=== PATIENT | female | born 1945 | race Caucasian/White ===

== ENCOUNTER 2016-08-11 21:16 | Emergency (ER) | payer MEDICARE, BC ==
[2016-08-11] MEDS ORDERED: BYSTOLIC5 M1 PO (22:22)
[2016-08-11] MEDS ORDERED: LIPITOR40 M1 PO (22:23)
[2016-08-11] MEDS ORDERED: NORVASC5 M2 PO (22:23)
[2016-08-11] MEDS ORDERED: SYNTHROID100 MC1 PO (22:23)
[2016-08-11] MEDS ORDERED: LISINOPRIL40 M1 PO (22:23)
[2016-08-11] MEDS ORDERED: ASPIRIN81 M1 PO (22:24)
[2016-08-11 22:50] LABS: URINE BILIRUBIN NEGATIVE (NEG); URINE BLOOD SMALL (NEG); URINE GLUCOSE (UA) NEGATIVE (NEG); URINE KETONE NEGATIVE (NEG); URINE LEUKOCYTE ESTERASE POSITIVE (NEG); URINE NITRITE NEGATIVE (NEG); URINE PROTEIN SMALL (NEG)
[2016-08-11 22:55] LABS: URINE APPEARANCE HAZY; URINE COLOR YELLOW
[2016-08-11 23:07] LABS: URINE BACTERIA 1+; URINE EPITHELIAL CELLS 0-1 /[HPF] (0-10)
[2016-08-11 23:08] LABS: BASO % 0.1 % (0-2); EOSINOPHIL ABSOLUTE COUNT 0.2 tho/cmm (0.0-0.7); IMMATURE GRANULOCYTES ABSOLUTE 0.02 tho/cmm (0-0.03); IMMATURE GRANULOCYTES PERCENT 0.2 % (0-0.3); LYMPH % 18.7 % (20-45); LYMPH ABSOLUTE COUNT 1.7 tho/cmm (0.8-4.5); MCH (MEAN CORPUSCULAR HGB) 30.4 pg (28.0-32.0); MCHC MEAN CORPUSCULAR HGB CONC 34.9 % (32.0-36.0); MCV (MEAN CELL VOLUME) 87.2 fl (82.0-96.0); MONO % 7.3 % (0-12); MONOCYTE ABSOLUTE COUNT 0.6 tho/cmm (0.0-1.2); NEUTROPHIL ABSOLUTE COUNT 6.3 tho/cmm (1.6-8.0); NEUTROPHIL-AUTOMATED 6.3 tho/cmm (1.6-8.0); NEUTROPHILS % 71.7 % (40-80); PLATELET COUNT 229 tho/cmm (150-450); RED BLOOD COUNT 4.93 mil/cmm (4.00-5.20); RED CELL DISTRIBUTION WIDTH 12.5 % (12.4-16.4); WHITE BLOOD COUNT 8.8 tho/cmm (4.0-10.0)
[2016-08-11 23:32] LABS: ALB/GLOB RATIO 1.1 (0.8-2.0); ALBUMIN 3.7 g/dl (3.5-5.0); ALKALINE PHOSPHATASE 140 U/L (33-138); ALT/SGPT 160 U/L (12-78); ANION GAP 14 mmol/L (0-20); AST/SGOT 311 U/L (10-40); BILIRUBIN,TOTAL 0.9 mg/dl (0-1.5); BLOOD UREA NITROGEN 22 mg/dl (6-24); CALCIUM 9.1 mg/dl (8.5-10.5); CARBON DIOXIDE-VENOUS 24 mmol/L (22-32); CHLORIDE 108 mmol/l (96-110); CREATININE 1.33 mg/dl (0.50-1.10); GLUCOSE 145 mg/dL (70-110); LIPASE 193 U/L (73-393); POTASSIUM 3.4 mmol/L (3.7-5.1); SODIUM 143 mmol/L (135-145); eGFR VALUE FOR BLACK 47 mL/Min
[2016-08-12] MEDS ORDERED: PROTONIX40 M2 PO (00:34)
== END 2016-08-12 00:57 ==
LOC: EDMED 21:16
PROVIDERS: Emergency Medicine
DX: R10.11 Right upper quadrant pain (principal); R12 Heartburn; I10 Essential (primary) hypertension; E78.5 Hyperlipidemia, unspecified